=== PATIENT | female | born 1965 | race Caucasian/White ===

== ENCOUNTER → 2016-07-27 | Outpatient (CLI) | payer BC ==
[~2016-07-27] MED LIST: ALBUTEROL17 GM; ALEVE220 M1 PO; ANTIVERT PO; BENTYL20 MG PO; BIOFLEX TABLET1 EACH; DULERA 100 MCG/13 GM IH; EVENING PRIMROSE; FAMOTIDINE PO; FISH OIL 1,2001 EAC1 PO; GLUCOSAMINE1000 MG PO; IBUPROFEN800 MG PO; IMITREX; IRON325 ( 651 PO; LINZESS290 MCG PO; MULTI VITAMIN1 EACH PO; MULTI-VITAMIN1 EAC1 PO; PEPCID AC20 M2 PO; PERCOCET 5-3251 TAB PO; PHENERGAN PO; SINGULAIR PO; ZOFRAN ODT4 MG/UDTAB PO; ZYRTEC10 M2 PO
--- NOTE | ~2016-07-27 | US24 ---
[facility] A Service of [facility] & [facility] RADIOLOGY TEXT RESULTS PATIENT: RICARDO CAMPOVERDE LOCATION: [facility] : 63 UNIT #: [id number] AGE: [address]: JESIKA STEPHENSON APRN SEX: F ORDER DR: [id number] [place], [place] [address] [id number] O MR#: [id number] Acc #: [id number] NAME: RICARDO CAMPOVERDE : 1965 SEX: F STUDY DATE/TIME: 07/27/2016 9:16 UNIT: [facility] ROOM: STUDY DESCRIPTION: US Breast Unilateral Attending Physician: Jesika Stephenson Aprn Referring Physician: Jesika Stephenson Aprn Ordering Physician: Physician Non-Staff Primary Care Physician: Jeanie Lizarraga M.D. MEDICAL IMAGING REPORT This report is preliminary unless electronic signature is present EXAM Targeted ultrasound of the left breast 07/27/2016 FINDINGS Result text under order number [id number]. Please see this order for result text. Dictated by... Jez Stubbs M.D. THIS IS AN ELECTRONICALLY VERIFIED REPORT Jez Stubbs M.D. at 07/31/2016 10:02 PM CHIDI/eliezer TD: 07/30/2016 13:39 JOB #: [id number] MEDICAL IMAGING REPORT Page 1 of 1 COPY
--- NOTE | ~2016-07-27 | MY6 ---
[facility] A Service of [facility] & [facility] RADIOLOGY TEXT RESULTS PATIENT: RICARDO CAMPOVERDE LOCATION: [facility] : 63 UNIT #: [id number] AGE: [address]: JESIKA STEPHENSON APRN SEX: F ORDER DR: [id number] [facility] [address] [place], [place] [address] [id number] O MR#: [id number] Acc #: [id number] NAME: RICARDO CAMPOVERDE : 1965 SEX: F STUDY DATE/TIME: 07/27/2016 8:30 UNIT: [facility] ROOM: STUDY DESCRIPTION: MY Mammogram Dx Dig [place] Attending Physician: Jesika Stephenson Aprn Referring Physician: Jesika Stephenson Aprn Ordering Physician: Physician Non-Staff Primary Care Physician: Jeanie Lizarraga M.D. MEDICAL IMAGING REPORT This report is preliminary unless electronic signature is present EXAM Bilateral digital diagnostic mammogram and targeted left breast ultrasound, 07/27/2016. INDICATION 50-year-old female complaining of a breast lump in the posterior upper outer hemisphere left breast for a week. No personal history of breast cancer. Family history positive in a maternal grandmother. History of punch biopsy on the right in 2004 with benign results. TECHNIQUE Standard CC and MLO views were obtained bilaterally. Compression MLO and true lateral views were obtained on the left. Exaggerated CC lateral views were obtained bilaterally. After the mammographic portion of the study targeted ultrasound of the left breast was also performed. COMPARISON STUDIES 08/18/2015, 03/06/2014, 08/17/2011 FINDINGS MAMMOGRAPHIC FINDINGS: The technologist has placed a marker over the area of palpable concern. In the far upper outer hemisphere posterior left breast deep to the marker, there is no mammographic abnormality. Breast parenchyma remains heterogeneously dense and unchanged. Fibroglandular predominance in the upper outer left breast is stable. There is no new dominant nodule, mass, or suspicious cluster of microcalcifications. Benign calcifications are present. Benign-appearing axillary nodes present. Previously placed biopsy clip in the right breast unchanged. Due to the palpable abnormality in the left breast, targeted ultrasound was thereafter performed. ULTRASOUND FINDINGS: The patient was initially scanned independently by the technologist and then rescanned in my presence. Imaging of the upper STS. [facility] A Service of [facility] RADIOLOGY TEXT RESULTS PATIENT: RICARDO CAMPOVERDE LOCATION: [facility] : 63 UNIT #: [id number] AGE: [address]: JESIKA STEPHENSON APRN SEX: F ORDER DR: outer hemisphere left breast at the area of palpable concern was performed and is negative with the exception of an area of probable fat necrosis at the site of palpable concern. Limited physical exam (with patient consent) was performed by me here in the department and demonstrated an area of focal bruising at the site of palpable concern, most characteristic of recent trauma. The subtle area of probable fat necrosis immediately subjacent to the bruising on ultrasound measures up to about 13 x 12 x 6 mm and is concordant with physical exam and lack of a abnormality on the patient's mammogram. There is no suspicious shadowing fluid collection or focal solid mass. This represents a probably benign finding for which a followup ultrasound is 6 months is recommended to document expected stability or resolution over time. Findings and recommendations were discussed with the patient here in the department. She voiced understanding and agreement. IMPRESSION 1. The area of palpable concern in the posterior upper outer left breast corresponds to a focal area of bruising on the patient's skin and a probable benign area of fat necrosis just deep to the skin, 15 cm from the nipple on ultrasound. This measures only about 13 mm x 12 mm. Suggest a repeat ultrasound in 6 months to reassess stability or resolution over time. There is no mammographic abnormality. 2. Redemonstration of heterogeneously dense breast tissue bilaterally on the patient's mammogram. No suspicious mammographic findings. Evidence of prior biopsy on the right. Patients over the age of 40 are entered into a reminder system with target due date for the next mammogram. A result letter will also be sent to the patient. BIRADS: 3 Probably benign finding; short interval follow-up suggested. Dictated by... Jez Stubbs M.D. THIS IS AN ELECTRONICALLY VERIFIED REPORT Jez Stubbs M.D. at 07/27/2016 5:19 PM CHIDI/lamont TD: 07/27/2016 12:42 JOB #: [id number] MEDICAL IMAGING REPORT Page 1 of 1 COPY
== END | disposition home or self-care (01) ==
LOC: CMAM 08:12
DX: N63 Unspecified lump in breast (principal)
CPT/HCPCS: 76641; G0204

== ENCOUNTER → 2017-01-12 | Outpatient (CLI) | payer BC ==
--- NOTE | ~2017-01-12 | MY14 ---
[facility] A Service of [facility] RADIOLOGY TEXT RESULTS PATIENT: RICARDO CAMPOVERDE LOCATION: [facility] : 63 UNIT #: [id number] AGE: [address]: Jeanie Lizarraga MD SEX: F ORDER DR: [id number] [facility] [address] [place], [place] [address] [id number] O MR#: [id number] Acc #: [id number] NAME: RICARDO CAMPOVERDE : 1965 SEX: F STUDY DATE/TIME: 01/12/2017 14:43 UNIT: [facility] ROOM: STUDY DESCRIPTION: MY Post Bx Film Attending Physician: Jeanie Lizarraga M.D. Ordering Physician: Jeanie Lizarraga M.D. Primary Care Physician: Jeanie Lizarraga M.D. MEDICAL IMAGING REPORT This report is preliminary unless electronic signature is present EXAM Two-view mammogram left breast post-biopsy clip placement. Date 01/12/2017 HISTORY Upper outer quadrant left breast lesion biopsy earlier today. FINDINGS Extended craniocaudal lateral views and true ML views were obtained. Left breast utilizing digital technique. Biopsy clip is seen within the upper outer quadrant left breast. The clip is located just at the lateral peripheral margin and along the anterior inferior margin of the regional increased parenchymal density. I believe that the area was probably appropriately sampled, but the clip was displaced during access guide removal. If the biopsy sample was deemed inadequate or potentially pathology is incongruent with the mammographic findings, this may necessitate a repeat biopsy, although, again, I do believe that the area was appropriately sampled during real time ultrasound guidance. IMPRESSION Two-view left breast post clip placement after left breast biopsy today. Dictated by... Mei Boston M.D. THIS IS AN ELECTRONICALLY VERIFIED REPORT Mei Boston M.D. at 01/13/2017 1:11 PM Jovan [facility] A Service [facility] RADIOLOGY TEXT RESULTS PATIENT: RICARDO CAMPOVERDE LOCATION: [facility] : 63 UNIT #: [id number] AGE: [address]: Jeanie Lizarraga MD SEX: F ORDER DR: TD: 01/13/2017 00:02 JOB #: [id number] MEDICAL IMAGING REPORT Page 1 of 1 COPY
--- NOTE | ~2017-01-12 | US200 ---
[facility] A Service of [facility] & [facility] RADIOLOGY TEXT RESULTS PATIENT: RICARDO CAMPOVERDE LOCATION: [facility] : 63 UNIT #: [id number] AGE: [address]: Jeanie Lizarraga MD SEX: F ORDER DR: [id number] [facility] [address] [place], [place] [address] [id number] O MR#: [id number] Acc #: [id number] NAME: RICARDO CAMPOVERDE : 1965 SEX: F STUDY DATE/TIME: 01/12/2017 14:10 UNIT: [facility] ROOM: STUDY DESCRIPTION: US Breast Guided Bx 1st Lesion Attending Physician: Jeanie Lizarraga M.D. Ordering Physician: Jeanie Lizarraga M.D. Primary Care Physician: Jeanie Lizarraga M.D. MEDICAL IMAGING REPORT This report is preliminary unless electronic signature is present ADDENDUM Pathology results have returned "segments of breast tissue containing hyalinized fibrosis, very focal mild duct hyperplasia, and focal columnar cell change. Malignancy is not identified". Sonographic and mammographic findings are concordant. Six-month followup diagnostic left breast mammogram and ultrasound is recommended. JOB #: [id number] Dictated by... Mei Boston M.D. THIS IS AN ELECTRONICALLY VERIFIED REPORT Mei Boston M.D. at 01/30/2017 9:33 PM JERARDO/saran TD: 01/30/2017 10:39 JOB #: [id number] MEDICAL IMAGING REPORT Page 1 of 1 COPY
== END | disposition home or self-care (01) ==
LOC: CWCC 13:53
DX: N60.32 Fibrosclerosis of left breast (principal); R92.8 Other abnormal and inconclusive findings on diagnostic imaging of breast
CPT/HCPCS: 76641; 88305; G0204; G0206

== ENCOUNTER → 2017-01-12 | Outpatient (CLI) | payer BC ==
--- NOTE | ~2017-01-12 | MY24 ---
[facility] A Service of [facility] & [facility] RADIOLOGY TEXT RESULTS PATIENT: RICARDO CAMPOVERDE LOCATION: [facility] : 63 UNIT #: [id number] AGE: [address]: JESIKA STEPHENSON APRN SEX: F ORDER DR: [id number] [facility] [address] [place], [place] [address] [id number] O MR#: [id number] Acc #: [id number] NAME: RICARDO CAMPOVERDE : 1965 SEX: F STUDY DATE/TIME: 01/12/2017 11:51 UNIT: [facility] ROOM: STUDY DESCRIPTION: VIKY OSEGUERAG W/ CAD UNI LT Attending Physician: Jesika Stephenson Aprn Referring Physician: Jesika Stephenson Aprn Ordering Physician: Staff Doctor Not On Primary Care Physician: Jeanie Lizarraga M.D. MEDICAL IMAGING REPORT This report is preliminary unless electronic signature is present EXAMINATION Left breast digital diagnostic mammogram with CAD. DATE 01/12/2017 HISTORY Six month followup of palpable abnormality and suspected fat necrosis near the left axillary region of the breast. Abnormal followup ultrasound today, for which diagnostic mammogram imaging was deemed necessary. COMPARISON Left breast diagnostic ultrasound 01/12/2017, 07/27/2016. Mild diagnostic mammogram 07/27/2016. Bilateral screening mammogram 08/18/2015, and 03/06/2014. FINDINGS True ML view of the left breast, extended craniocaudal lateral view of the left breast, spot compression views of the upper/outer left breast in the extended craniocaudal lateral and MLO planes was performed. Extremely dense fibroglandular tissue is demonstrated within the upper/outer quadrant left breast, greatest in the central and posterior third. The findings appear similar to the 2013 examination. There is some areas of scattered calcification in the same vicinity. The area of density within the more posterior axillary region of the breast, thought to correspond to an area of fat necrosis on previous 07/27/2016 ultrasound and mammogram, have no correlate on today's mammogram exam. Diagnostic left breast ultrasound was performed earlier on this same date for evaluation of an area of fat necrosis. The area of increased STS. [facility] A Service of [facility] RADIOLOGY TEXT RESULTS PATIENT: RICARDO CAMPOVERDE LOCATION: [facility] : 63 UNIT #: [id number] AGE: [address]: JESIKA STEPHENSON GLUE WHEEL OPERATOR SEX: F ORDER DR: echogenicity in the axillary region of the left breast has resolved. However, additional scanning was performed in the upper outer quadrant of the left breast near the axillary region. Extremely dense echogenic shadowing soft tissue is seen with macro-lobulated contour. It contains a dominant complex cyst measuring up to 1.8 cm in the same location. Incidental note is made of a benign-appearing intramammary left axillary lymph node measuring 1 cm with thin cortex. IMPRESSION 1. Left breast BIRADS 4. Suspicious abnormality. Biopsy recommended. Sonographic interrogation of the upper/outer left breast posterior third in left axillary region today demonstrates extremely dense, macro-lobulated and echogenic shadowing tissue. It is thought to correspond to the asymmetric density upper/outer quadrant of the left breast on diagnostic mammogram today. A large cyst is also contained in the same vicinity. While the mammographic findings appear relatively stable, the sonographic findings are somewhat concerning. For this reason, ultrasound-guided core biopsy of the shadowing tissue in the upper/outer left breast is recommended at this time. 2. The area of presumed fat necrosis in the left axillary region has resolved since July 2016. 3. I have contacted the breast care mgr's office to notify the referring physician at this time. I personally attempted to contact the referring physician's office as well. We are attempting to schedule the patient for ultrasound-guided core needle biopsy today at her request. 4. BIRADS 4. Patients over the age of 40 are entered into a reminder system with target due date for the next mammogram. A result letter will also be sent to the patient. BIRADS: 4 Suspicious abnormality; biopsy should be considered. Dictated by... Mei Boston M.D. THIS IS AN ELECTRONICALLY VERIFIED REPORT Mei Boston M.D. at 01/13/2017 1:11 PM JERARDO/bharat TD: 01/12/2017 15:33 JOB #: [id number] MEDICAL IMAGING REPORT Page 1 of 1 COPY
--- NOTE | ~2017-01-12 | US24 ---
[facility] A Service [facility] RADIOLOGY TEXT RESULTS PATIENT: RICARDO CAMPOVERDE LOCATION: [facility] : 63 UNIT #: [id number] AGE: [address]: JESIKA STEPHENSON APRN SEX: F ORDER DR: [id number] [facility] [address] [place], [place] [address] [id number] O MR#: [id number] Acc #: [id number] NAME: RICARDO CAMPOVERDE : 1965 SEX: F STUDY DATE/TIME: 01/12/2017 11:21 UNIT: [facility] ROOM: STUDY DESCRIPTION: US Breast Unilateral Attending Physician: Jesika Stephenson Aprn Referring Physician: Jesika Stephenson Aprn Ordering Physician: Physician Non-Staff Primary Care Physician: Jeanie Lizarraga M.D. MEDICAL IMAGING REPORT This report is preliminary unless electronic signature is present EXAM Diagnostic left breast ultrasound DATE 01/12/2017 HISTORY Follow up abnormality in the left breast thought to most likely represent fat necrosis on previous diagnostic mammogram and ultrasound. 6-month followup. COMPARISON Left breast diagnostic ultrasound and bilateral diagnostic mammogram 07/27/2016. Bilateral screening mammogram 03/06/2014. FINDINGS Targeted sonographic imaging was performed in the upper outer left breast in left axillary region. Please refer to the diagnostic mammogram report from this same day for full description mammographic and sonographic findings and recommendations. IMPRESSION BIRADS 4. Suspicious abnormality. Biopsy recommended. Please refer to the diagnostic mammogram report from the same day for full description mammographic and sonographic findings and recommendations. Patients over the age of 40 are entered into a reminder system with target due date for the next mammogram. A result letter will also be sent to the patient. BIRADS: 4. Suspicious abnormality; biopsy should be considered. [facility] A Service [facility] RADIOLOGY TEXT RESULTS PATIENT: RICARDO CAMPOVERDE LOCATION: [facility] : 63 UNIT #: [id number] AGE: [address]: JESIKA STEPHENSON APRN SEX: F ORDER DR: Dictated by... Mei Boston M.D. THIS IS AN ELECTRONICALLY VERIFIED REPORT Mei Boston M.D. at 01/13/2017 1:11 PM JERARDO/dipika TD: 01/12/2017 23:36 JOB #: [id number] MEDICAL IMAGING REPORT Page 1 of 1 COPY
== END | disposition home or self-care (01) ==
LOC: CWCC 10:55
DX: Z09 Encounter for follow-up examination after completed treatment for conditions other than malignant neoplasm (principal); N63 Unspecified lump in breast; R92.8 Other abnormal and inconclusive findings on diagnostic imaging of breast; N60.02 Solitary cyst of left breast
CPT/HCPCS: 76641; G0206